=== PATIENT | female | born 1945 | race Caucasian/White ===

== ENCOUNTER 2016-12-25 09:41 | Emergency (ER) | payer OTHER ==
[~2016-12-25] VITALS: Ht 157.5 cm; Wt 59.0 kg
[2016-12-25] MEDS ORDERED: ABILIFY2 MG PO (10:22)
[2016-12-25] MEDS ORDERED: WELLBUTRIN XL150 MG PO (10:22)
[2016-12-25] MEDS ORDERED: PROZAC40 MG PO (10:24)
== END 2016-12-25 11:22 | disposition home or self-care (01) ==
LOC: ED 09:41
DX: S00.03XA Contusion of scalp, initial encounter (principal); F22 Delusional disorders; Z79.899 Other long term (current) drug therapy; W22.8XXA Striking against or struck by other objects, initial encounter
CPT/HCPCS: 99282